=== PATIENT | male | born 1965 | race Caucasian/White ===

== ENCOUNTER 2021-08-25 10:35 | Outpatient (CLI) | payer OTHER, SELFPAY ==
--- NOTE | ~2021-08-25 | NM_ITS ---
EXAMINATION: NM emmanuel stress w perfusion DATE: 08/25/2021 14:18 INDICATION: Family history of ischemic heart disease. Preop. TECHNIQUE: Rest images were obtained following intravenous administration of 9 mCi Tc99m tetrofosmin (Myoview). The patient was infused intravenously with Lexiscan (regadenoson). Then, 29.8 mCi Tc99m te trofosmin (Myoview) was administered intravenously, and stress images were obtained. Data was reconst ructed into short axis and horizontal and vertical long axis SPECT images. Gated SPECT images were al so obtained. COMPARISON: None. FINDINGS: There is no definite reversible or fixed perfusion abnormality to suggest ischemia or infar ction. There is no segmental wall motion abnormality. Left ventricular ejection fraction measures 6 6%. IMPRESSION: 1. No definite ischemia or infarct. 2. Normal left ventricular ejection fraction measuring 66%. Reviewed, dictated and finalized at location A.
--- NOTE | 2021-08-25 10:49 | EST_ITS ---
Patient Info Name: Grover Melgar Age: 56 years : 1965 Gender: Male Ht: 71 in Wt: 235 lbs BSA: 2.34 m2 HR: 54 bpm BP: 169 / 96 mmHg Exam Date: 08/25/2021 11:52 AM Exam Location: [facility] Stress Patient Status: Outpatient Admit Date: 08/25/2021 Staff Ordering Physician: Dyllan Lucas DO Attending Provider: Dyllan Lucas DO Exercise Technologist: Verena Trotter CT Exercise Physician: Vikas Reid DO Exam Type: CA stress emmanuel w NM Study Info Indications Z01.810 - Encounter for preprocedural cardiovascular examination A regadenoson stress test was performed. Summary 1. 1. Negative lexiscan stress test for ischemic ST changes by ECG criteria. 2. 2. Baseline hypertension. 3. 3. Nuclear scan to follow and will be reported separately. Please correlate with it. 4. 4. Patient informed of the above results. Protocol: Lexiscan Stress ECG Details Stage: REST Duration (min): 2 min : 14 sec HR (bpm): 53 SBP (mmHg): 169 DBP (mmHg): 96 Stage: REST Duration (min): 7 min : 25 sec HR (bpm): 50 SBP (mmHg): 169 DBP (mmHg): 96 Stage: STAGE 1 Duration (min): 1 min : 0 sec HR (bpm): 69 SBP (mmHg): 151 DBP (mmHg): 105 Stage: RECOVERY Duration (min): 1 min : 0 sec HR (bpm): 94 SBP (mmHg): 151 DBP (mmHg): 105 Stage: RECOVERY Duration (min): 2 min : 0 sec HR (bpm): 92 SBP (mmHg): 151 DBP (mmHg): 105 Stage: RECOVERY Duration (min): 3 min : 0 sec HR (bpm): 90 SBP (mmHg): 169 DBP (mmHg): 108 Stage: RECOVERY Duration (min): 3 min : 30 sec HR (bpm): 86 SBP (mmHg): 169 DBP (mmHg): 108 Rest HR: 50 bpm Peak HR: 96 bpm Rest Sys BP: 169 mmHg Peak Sys BP: 169 mmHg Max Pred HR: 164 bpm % Max Pred HR: 59 % Target HR: 139 bpm Max RPP: 16,224 bpm*mmHg Termination Reason: Completed protocol Cardiac Symptoms: Shortness of breath Total Time: 1 min : 0 sec Rest Puente BP: 96 mmHg Peak Puente BP: 108 mmHg Total Dose: 0.4 mg Resting ECG Sinus rhythm. Stress ECG No ST changes. Arrhythmias None. Report Signatures
== END 2021-08-25 10:36 | disposition home or self-care (01) ==
PROVIDERS: PCP Internal Medicine; Visit Provider Internal Medicine
DX: Z01.810 Encounter for preprocedural cardiovascular examination (principal); Z82.49 Family history of ischemic heart disease and other diseases of the circulatory system
CPT/HCPCS: 78452; 93017; A9502; J2785

== ENCOUNTER 2023-05-29 01:34 | Day surgery (SDC) | payer BC, SELFPAY ==
--- NOTE | 2023-05-26 12:18 | SUR.PREOP ---
Patient called regarding upcoming procedure. Reviewed preop instructions, appointment times, and procedure prep.
--- NOTE | 2023-05-26 14:21 | PM.HPGS ---
History of Present Illness History of Present Illness Consent: Risks, benefits, and alternatives have been discussed and questions answered. Patient agrees to proceed with procedure. Chief complaint: neoplasm screening Narrative: Grover Melgar is a 57 year old male Referred for colon cancer screening Review of Systems Review of Systems: All systems reviewed & are unremarkable except as noted in HPI and below PMFSH Past Medical History Medical History Bulging discs Chest pain Collapsed lung Diastasis recti External hemorrhoids Melena Rotator cuff arthropathy of right shoulder Screening for prostate cancer Surgical History Surgical History History of lung surgery Family History Family History Mother Cerebrovascular accident Father Family history of heart disease in male family member before age 55 Other Asthma Family history of alcoholism Family history of cardiovascular disease Family history of malignant neoplasm Social History Social History Smoking packs per day: 0.15 Smoking cigarettes per day: 3.0 Years smoked: 35 Smoking pack-years: 5.25 Smoking status: Light tobacco smoker Tobacco type: cigarettes Second hand tobacco smoke exposure: Yes Alcohol intake: never Substance use: former Substance use type: crack/cocaine Other substance usage details: last use 2020 Lack of Transportation: No Lack of Food: Never True Current Housing: I Have Housing Concerned About Future Housing: No Difficulty Paying Gas/Electric Bills: No Difficulty Paying for Meds: No Currently Unemployed: No Education: High School Diploma/GED Difficulty w/ Childcare or Family Care: No Living arrangements: alone Spiritual care concerns: No Meds Home Medications and Allergies Home Medications Medication Instructions Recorded Confirmed Type multivitamin (Daily Multi-Vitamin 1 tablet PO DAILY 09/21/20 05/29/23 History tablet) omega-3 fatty acids 500 mg capsule 1,500 mg PO DAILY 09/21/20 05/29/23 History calcium carbonate 500 mg-vitamin 1 tablet PO DAILY 05/25/21 05/29/23 History D3 3.125 mcg (125 unit) tablet cholecalciferol (vitamin D3) 125 125 mcg PO DAILY 05/25/21 05/29/23 History mcg (5,000 unit) capsule pantoprazole 40 mg tablet,delayed 40 mg PO QAM #90 tabs 12/26/22 05/29/23 Rx release fenofibrate micronized 134 mg 134 mg PO DAILY #90 caps 01/06/23 05/29/23 Rx capsule valacyclovir 500 mg tablet 500 mg PO DAILY #30 tabs 03/22/23 05/29/23 Rx atorvastatin 40 mg tablet See Rx Instructions .Route 04/20/23 05/29/23 Rx .COMPLEX #90 tabs citalopram 40 mg tablet See Rx Instructions .Route 05/05/23 05/29/23 Rx .COMPLEX #3 tabs Allergies Allergy/AdvReac Type Severity Reaction Status Date / Time No Known Allergies Allergy Verified 05/29/23 07:24 Exam Resp: Auscultation: clear to auscultation bilaterally Cardio: Rate: regular rate Rhythm: regular rhythm GI: GI Palp: Yes Soft to palpation and No Tenderness to palpation present (GI) Assessment and Plan Assessment and plan (1) Screening for colon cancer: Code(s): Z12.11 - Encounter for screening for malignant neoplasm of colon Status: Acute Assessment and Plan: Colonoscopy with possible biopsy or polypectomy or cautery or injection of substances.
[2023-05-29 07:43] VITALS: BP 125/80; PULSE 54; RESP 18; TEMP 35.9; O2SAT 100
[2023-05-29] MEDS: LACTATED RINGERS 1,000 ML 150 ML IV CONT (07:51)
--- NOTE | 2023-05-29 08:34 | WPDANESEPPF ---
Anes - Initial Pre Proc Eval Procedure: Operation Date: 05/29/23 08:30 Proposed Procedures p Screening Colonoscopy - Denzel Hernández MD Date/Time: 05/29/23 08:34 Surgeon: Denzel Hernández MD Pre Op Diagnosis: neoplasm screening Patient Data Age: 57 Gender: M Height: 1.8 m Weight: 95.7 kg Last Vital Signs Temp 96.6 F L 05/29/23 07:43 Pulse 54 L 05/29/23 07:43 Resp 18 05/29/23 07:43 BP 125/80 05/29/23 07:43 Pulse Ox 100 05/29/23 07:43 O2 Del Method Room Air 05/29/23 07:43 Allergies Allergy/AdvReac Type Severity Reaction Status Date / Time No Known Allergies Allergy Verified 05/29/23 07:24 Home Medications Medication Instructions Recorded Confirmed Type multivitamin (Daily Multi-Vitamin 1 tablet PO DAILY 09/21/20 05/29/23 History tablet) omega-3 fatty acids 500 mg capsule 1,500 mg PO DAILY 09/21/20 05/29/23 History calcium carbonate 500 mg-vitamin 1 tablet PO DAILY 05/25/21 05/29/23 History D3 3.125 mcg (125 unit) tablet cholecalciferol (vitamin D3) 125 125 mcg PO DAILY 05/25/21 05/29/23 History mcg (5,000 unit) capsule pantoprazole 40 mg tablet,delayed 40 mg PO QAM #90 tabs 12/26/22 05/29/23 Rx release fenofibrate micronized 134 mg 134 mg PO DAILY #90 caps 01/06/23 05/29/23 Rx capsule valacyclovir 500 mg tablet 500 mg PO DAILY #30 tabs 03/22/23 05/29/23 Rx atorvastatin 40 mg tablet See Rx Instructions .Route 04/20/23 05/29/23 Rx .COMPLEX #90 tabs citalopram 40 mg tablet See Rx Instructions .Route 05/05/23 05/29/23 Rx .COMPLEX #3 tabs Patient hx anesthesia problems: none Family hx anesthesia problems: none Results Review: All pre-operative results and documents have been reviewed as part of the pre-operative evaluation. [facility] Past Medical History Medical History Bulging discs Chest pain Collapsed lung Diastasis recti External hemorrhoids Melena Rotator cuff arthropathy of right shoulder Screening for prostate cancer Surgical History Surgical History History of lung surgery Family History Family History Mother Cerebrovascular accident Father Family history of heart disease in male family member before age 55 Other Asthma Family history of alcoholism Family history of cardiovascular disease Family history of malignant neoplasm Social History Social History Smoking packs per day: 0.15 Smoking cigarettes per day: 3.0 Years smoked: 35 Smoking pack-years: 5.25 Smoking status: Light tobacco smoker Tobacco type: cigarettes Second hand tobacco smoke exposure: Yes Alcohol intake: never Substance use: former Substance use type: crack/cocaine Other substance usage details: last use 2020 Lack of Transportation: No Lack of Food: Never True Current Housing: I Have Housing Concerned About Future Housing: No Difficulty Paying Gas/Electric Bills: No Difficulty Paying for Meds: No Currently Unemployed: No Education: High School Diploma/GED Difficulty w/ Childcare or Family Care: No Living arrangements: alone Spiritual care concerns: No Anes - Eval Final PreProcedure Day of Procedure 05/29/23 08:34 Patient weight: normal Heart: regular rate and rhythm Lungs: clear to auscultation Airway: Mallampati scale class II Neurological: alert and oriented Last oral intake: >/= 8 hours ASA classification: II Emergent: no Anesthetic plan: proceed Anesthesia type and monitoring: general and standard monitoring Results Review: All pre-operative results and documents have been reviewed as part of the pre-operative evaluation. Informed Consent: The patient's anesthetic plan and its attendant risks and benefits were discussed with the patient/family/POA. Questions were solicited and a
[2023-05-29 08:47] VITALS: BP 108/73; PULSE 54; RESP 20; O2SAT 96
[2023-05-29 08:57] VITALS: BP 113/80; PULSE 46; RESP 18; O2SAT 100
[2023-05-29 09:07] VITALS: BP 120/86; PULSE 44; RESP 18; O2SAT 100
== END 2023-05-29 09:34 | disposition home or self-care (01) ==
PROVIDERS: PCP Nurse Practitioner; Visit Provider Internal Medicine Gastroenterology
PROC: 0DJD8ZZ Inspection of Lower Intestinal Tract, Via Natural or Artificial Opening Endoscopic (ICD-10-PCS; CPT 45378; principal; 2023-05-29 08:30)
DX: Z12.11 Encounter for screening for malignant neoplasm of colon (principal); D12.5 Benign neoplasm of sigmoid colon; K63.5 Polyp of colon; K64.8 Other hemorrhoids; K57.30 Diverticulosis of large intestine without perforation or abscess without bleeding; J98.19 Other pulmonary collapse; F17.210 Nicotine dependence, cigarettes, uncomplicated; F14.90 Cocaine use, unspecified, uncomplicated; Z98.890 Other specified postprocedural states; Z82.49 Family history of ischemic heart disease and other diseases of the circulatory system; Z80.9 Family history of malignant neoplasm, unspecified
CPT/HCPCS: 45385; 45380; 88305; J2704; J7120